=== PATIENT | female | born 1985 ===

== ENCOUNTER 2017-03-01 19:57 | Observation (INO) ==
[2017-03-01 20:35] LABS: Bilirubin,Urine Negative (Negative); Blood,Urine Negative (Negative); Clarity,Urine Clear (Clear); Color,Urine Yellow (Yellow); Glucose,Urine (UA) Normal (Normal); Ketones,Urine Negative (Negative); Leukocyte Esterase,Urine Negative (Negative); Nitrite,Urine Negative (Negative); PH,Urine 5.5 pH Units (5.0-8.0); Protein,Urine Negative (Neg-Trace); Specific Gravity,Urine <= 1.005 (1.010-1.025); Urobilinogen,Urine Normal (Normal)
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
[2017-03-01 20:50] LABS: Amphetamine Screen,Urine Negative ng/mL (Cutoff=1000); Barbiturate Screen,Urine Negative ng/mL (Cutoff=200); Benzodiazepines Screen,Urine Negative ng/mL (Cutoff=200); Cannabinoid Screen,Urine Negative ng/mL (Cutoff = 50); Cocaine Screen,Urine Negative ng/mL (Cutoff= 300); Opiate Screen,Urine Negative ng/mL (Cutoff=300); Phencyclidine Screen,Urine Negative ng/mL (Cutoff=25)
[2017-03-01 20:50] LABS: Basophils # 0.1 K/mcL (0.0-0.2); Basophils % 1.3 %; Eosinophils # 0.1 K/mcL (0.0-0.6); Eosinophils % 1.3 %; Hematocrit 37.9 % (35.3-44.9); Hemoglobin 13.4 g/dL (11.5-15.4); Immature Granulocytes % 0.3 % (0-4); Lymphocytes # 1.8 K/mcL (0.6-4.6); Lymphocytes % 28.7 %; Mean Corpuscular HGB Conc 35.4 g/dL (31.6-35.5); Mean Corpuscular Hemoglobin 33.9 pg (28.0-33.3); Mean Corpuscular Volume 95.9 fL (83.0-100.0); Mean Platelet Volume 9.1 fL (9.4-12.4); Monocytes # 0.5 K/mcL (0.0-1.3); Monocytes % 7.8 %; Neutrophils # 3.7 K/mcL (1.6-8.9); Platelet Count 245 K/mcL (140-400); Red Blood Count 3.95 M/mcL (3.82-4.97); Segmented Neutrophils % 60.6 %
[2017-03-01 21:05] LABS: Alanine Aminotransferase 47 Units/L (0-55); Albumin 3.9 g/dL (3.5-5.0); Alkaline Phosphatase 97 Units/L (38-126); Aspartate Amino Transferase 76 Units/L (5-34); BUN/Creatinine Ratio 9 (6-26); Bilirubin,Total 0.4 mg/dL (0.2-1.2); Blood Urea Nitrogen 7 mg/dL (7-20); Calcium 8.7 mg/dL (8.6-10.8); Carbon Dioxide 23 mEq/L (19-29); Chloride 99 mEq/L (98-109); Ethanol 393 mg/dL (0-10); Globulin 3.8 g/dL (2.4-3.5); Glucose 86 mg/dL (70-99); Osmolality,Calculated 279 (280-300); Potassium 3.9 mEq/L (3.5-4.5); Sodium 136 mEq/L (136-145); Total Protein 7.7 g/dL (6.0-8.3); eGFR For African Americans > 60 (> 60); eGFR For Non-African Americans > 60 (> 60)
[2017-03-01 21:10] LABS: Acetaminophen < 3.0 mcg/mL (10-30); Salicylate < 5.0 mg/dL (15-30)
[2017-03-01 21:25] LABS: Thyroid Stimulating Hormone 2.946 mcIU/mL (0.350-4.840)
[2017-03-01] MEDS ORDERED: 0.9 % Sodium Chloride 1,000 ML IVC ONE (21:42)
[2017-03-01 21:52] LABS: INR 1.1; Prothrombin Time 11.6 Seconds (9.4-12.1)
[2017-03-01] MEDS ORDERED: Ondansetron ODT 4 MG TAB.RAPDIS SL PRN (22:53)
[2017-03-01] MEDS ORDERED: Naloxone 0.4 MG/ML INJ IVP PRN (22:53)
[2017-03-01] MEDS: 0.9 % Sodium Chloride 1,000 ML IVC SCH (23:18)
[2017-03-02 06:10] LABS: Basophils # 0.1 K/mcL (0.0-0.2); Basophils % 1.2 %; Eosinophils # 0.1 K/mcL (0.0-0.6); Hematocrit 38.4 % (35.3-44.9); Hemoglobin 13.2 g/dL (11.5-15.4); Immature Granulocytes % 0.4 % (0-4); Lymphocytes # 1.9 K/mcL (0.6-4.6); Lymphocytes % 36.6 %; Mean Corpuscular HGB Conc 34.4 g/dL (31.6-35.5); Mean Corpuscular Hemoglobin 33.6 pg (28.0-33.3); Mean Corpuscular Volume 97.7 fL (83.0-100.0); Mean Platelet Volume 9.2 fL (9.4-12.4); Monocytes # 0.6 K/mcL (0.0-1.3); Monocytes % 12.5 %; Neutrophils # 2.4 K/mcL (1.6-8.9); Platelet Count 250 K/mcL (140-400); Red Blood Count 3.93 M/mcL (3.82-4.97); Red Cell Distribution Width 12.3 % (11.5-14.5); Segmented Neutrophils % 47.3 %
[2017-03-02 06:29] LABS: BUN/Creatinine Ratio 9 (6-26); Blood Urea Nitrogen 7 mg/dL (7-20); Calcium 8.4 mg/dL (8.6-10.8); Carbon Dioxide 22 mEq/L (19-29); Chloride 110 mEq/L (98-109); Glucose 70 mg/dL (70-99); Osmolality,Calculated 296 (280-300); Potassium 3.8 mEq/L (3.5-4.5); Sodium 145 mEq/L (136-145); eGFR For African Americans > 60 (> 60); eGFR For Non-African Americans > 60 (> 60)
[2017-03-02 07:03] LABS: INR 1.1; Prothrombin Time 11.4 Seconds (9.4-12.1)
[2017-03-02 07:06] LABS: Activated Partial Thrombo Time 29.4 Seconds (26.0-36.0)
[2017-03-02] MEDS: 0.9 % Sodium Chloride 1,000 ML IVC SCH ×2 (08:55→16:27)
[2017-03-02] MEDS: FLUoxetine 20 MG CAPSULE PO SCH (09:03)
[2017-03-02] MEDS: clonazePAM 0.5 MG TABLET PO SCH ×2 (09:03→20:14)
[2017-03-02] MEDS ORDERED: ALPRAZolam 1 MG TABLET PO PRN ×2 (10:24→15:33)
[2017-03-02] MEDS ORDERED: *HR* Metoprolol 5 MG/5 ML VIAL IVP ONE ×2 (15:30→18:58)
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
[2017-03-02] MEDS: Thiamine (B-1) 100 MG TABLET PO SCH (16:22)
[2017-03-02] MEDS: Multivit/Ca/Min/Fe/FA 1 TAB TABLET PO SCH (16:22)
[2017-03-03] MEDS: 0.9 % Sodium Chloride 1,000 ML IVC SCH (05:34)
[2017-03-03] MEDS: clonazePAM 0.5 MG TABLET PO SCH (08:17)
[2017-03-03] MEDS: Multivit/Ca/Min/Fe/FA 1 TAB TABLET PO SCH (08:17)
[2017-03-03] MEDS: FLUoxetine 20 MG CAPSULE PO SCH (08:17)
[2017-03-03] MEDS: Thiamine (B-1) 100 MG TABLET PO SCH (08:17)
--- NOTE | 2017-03-03 10:23 | Internal Med Progress Note ---
Date of Encounter: 03/03/17 Time of Encounter: 10:15 - Assessment and plan (1) Alcohol abuse Current Visit: Yes Status: Acute Assessment and plan: March 03. Awaiting mental health consultation. Will give additional metoprolol since she is having mild alcohol withdrawal tachycardia. - Subjective Interval history: March 03. She has no new complaints and feels better. She has not been seen yet by mental health clinic personnel. - Constitutional Vitals: Temp Pulse Resp BP Pulse Ox 99.1 F 98 20 145/97 99 03/03/17 07:42 03/03/17 07:42 03/03/17 07:42 03/03/17 07:42 03/03/17 07:42 Exam: She is resting comfortably in bed. Her affect is bright and cheerful. Heart is regular at rate 96/m. Lungs are clear anteriorly. I reviewed her medications and lab results. Internal Medicine: Result - Labs CBC & Chem 7: 03/02/17 05:55 03/02/17 05:55 - ABG Interpretation ABG results: PT/INR, D-dimer PT 11.4 Seconds (9.4-12.1) 03/02/17 05:55 Consult Discharge Plan - Plan Referrals: Yanique Mayers, [employer] [Primary Care Provider] - 1 week
[2017-03-03] MEDS ORDERED: Metoprolol XL (24 HR) Succ 50 MG TAB.ER.24H PO SCH (10:30)
[2017-03-03 11:53] VITALS: BP 145/96
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
== END 2017-03-03 13:00 | disposition home or self-care (01) ==
LOC: INPPIK 19:57 → EMEROOPIK 19:57 → INPPIK 22:27
PROVIDERS: ADMIT Internal Medicine; ATTEND Internal Medicine